=== PATIENT | male | born 1965 | race African-American/Black ===

== ENCOUNTER 2017-04-27 08:27 | Outpatient (CLI) | payer OTHER, SELFPAY ==
[2017-04-27 10:04] LABS: #Eosinphils 0.1 thou/uL (0.0-0.7); #Lymphocytes 3.5 thou/uL (1.20-3.40); #Monocytes 0.7 thou/uL (0.11-0.59); #Neutrophils 4.1 thou/uL (1.40-6.50); %Basophils 0.5 % (0.0-1.0); %Eosinophils 0.7 % (0.0-10.0); %Lymphocytes 41.8 % (21.0-51.0); %Monocytes 8.3 % (0.0-10.0); %Neutrophils 48.8 % (42.0-75.0); Mean Corpuscular HGB CONC 33.8 g/dL (32.0-36.0); Mean Corpuscular Hemoglobin 29.8 pg (27.0-31.0); Mean Corpuscular Volume 88.1 fl (80.0-94.0); Platelet Count 245 thou/uL (130-400); RBC Distribution Width 12.6 % (11.5-14.5); Red Blood Cell (RBC) Count 4.71 mill/uL (4.70-6.10); White Blood Cell (WBC) Count 8.4 thou/uL (4.8-10.8)
[2017-04-27 10:25] LABS: ALT (SGPT) 50 U/L (8-55); AST (SGOT) 19 U/L (5-34); Albumin 4.3 g/dL (3.5-5.0); Alkaline Phosphatase 65 U/L (40-150); Anion Gap 16 mmol/L (10-20); BUN (Urea Nitrogen) 30 mg/dL (8.9-20.6); Bilirubin, Total 0.4 mg/dL (0.2-1.2); Calc. Creatinine Clearance 0 mL/min (70-130); Calcium 9.8 mg/dL (7.8-10.44); Carbon Dioxide 25 mmol/L (22-29); Cardiac Risk 4.3 (Less than 4.5); Chloride 102 mmol/L (98-107); Cholesterol 160 mg/dl (< 200 Desired); Estimated GFR-MDRD 75; Globulin 2.7 g/dL (2.4-3.5); Glucose 101 mg/dL (70-105); HDL Cholesterol 37 mg/dL (>60 Neg Risk); LDL Cholesterol, Calculated 85 mg/dL; Sodium 140 mmol/L (136-145); Triglycerides 192 mg/dL (Less than 150)
[2017-04-27 17:49] LABS: CRP (Inflammatory) Less than 0.50 mg/dL (= or < 0.5)
[2017-04-29 07:21] LABS: Antinuclear AB Negative (Negative)
== END 2017-04-27 08:28 | disposition home or self-care (01) ==
LOC: HPCALD 08:27
PROVIDERS: ATTEND Family Medicine
DX: E78.2 Mixed hyperlipidemia (principal); M19.039 Primary osteoarthritis, unspecified wrist; I10 Essential (primary) hypertension
CPT/HCPCS: 36415; 80053; 80061; 84443; 85025; 85652; 86038; 86140; 86200; 86430

== ENCOUNTER 2017-05-10 16:23 | Emergency (ER) | payer OTHER ==
[2017-05-10] MEDS ORDERED: Ketorolac Tromethamine 30 MG/ML VIAL ONE (16:34)
[2017-05-10] MEDS ORDERED: methylPREDNISolone Sod Succ/PF 125 MG/2 ML VIAL ONE (16:34)
[2017-05-10 16:53] LABS: #Basophils 0.1 thou/uL (0.0-0.2); #Lymphocytes 2.1 thou/uL (1.20-3.40); #Monocytes 0.6 thou/uL (0.11-0.59); #Neutrophils 5.6 thou/uL (1.40-6.50); %Eosinophils 0.5 % (0.0-10.0); %Monocytes 7.3 % (0.0-10.0); %Neutrophils 66.2 % (42.0-75.0); Mean Corpuscular HGB CONC 34.3 g/dL (32.0-36.0); Mean Corpuscular Hemoglobin 29.7 pg (27.0-31.0); Mean Corpuscular Volume 86.6 fl (80.0-94.0); Mean Platelet Volume 7.9 fL (7.4-10.4); Platelet Count 272 thou/uL (130-400); RBC Distribution Width 11.7 % (11.5-14.5); Red Blood Cell (RBC) Count 4.71 mill/uL (4.70-6.10); White Blood Cell (WBC) Count 8.4 thou/uL (4.8-10.8)
[2017-05-10 16:58] LABS: CKMB 0.6 ng/mL (0-6.6); Troponin I 0.011 ng/mL (< 0.028)
[2017-05-10 17:22] LABS: Magnesium 2.7 mg/dL (1.6-2.6)
[2017-05-10 18:09] LABS: ALT (SGPT) 154 U/L (8-55); AST (SGOT) 86 U/L (5-34); Albumin 4.3 g/dL (3.5-5.0); Alkaline Phosphatase 147 U/L (40-150); Anion Gap 18 mmol/L (10-20); BUN (Urea Nitrogen) 29 mg/dL (8.9-20.6); Calc. Creatinine Clearance 0 mL/min (70-130); Calcium 10.7 mg/dL (7.8-10.44); Carbon Dioxide 27 mmol/L (22-29); Chloride 95 mmol/L (98-107); Estimated GFR-MDRD 71; Globulin 4.3 g/dL (2.4-3.5); Glucose 95 mg/dL (70-105); Potassium 3.6 mmol/L (3.5-5.1); Protein, Total 8.6 g/dL (6.0-8.3); Sodium 136 mmol/L (136-145)
[2017-05-11 18:12] LABS: Carbamazepine-Tegretol Less than 1.9 ug/mL (4.0-12.0)
== END 2017-05-10 18:00 | disposition home or self-care (01) ==
LOC: BURERS 16:23
DX: M10.9 Gout, unspecified (principal); I11.0 Hypertensive heart disease with heart failure; I50.9 Heart failure, unspecified; Z79.899 Other long term (current) drug therapy
CPT/HCPCS: 80053; 80156; 82553; 83735; 83880; 84484; 84550; 85025; 85652; 93005; 96361; 96374; 96375; J1885; J2930

== ENCOUNTER 2019-05-09 15:04 | Emergency (ER) | payer OTHER ==
[~2019-05-09 15:04] MED LIST: Iopamidol 370 76% 100 ML VIAL ONE
[2019-05-09 15:44] LABS: INR-International Normal Ratio 0.9; Prothrombin Time 12.1 SEC (12.0-14.7)
[2019-05-09 15:54] LABS: #Basophils 0.1 thou/uL (0.0-0.2); #Eosinphils 0.1 thou/uL (0.0-0.7); #Lymphocytes 1.6 thou/uL (1.20-3.40); #Monocytes 0.3 thou/uL (0.11-0.59); %Basophils 1.4 % (0.0-1.0); %Eosinophils 2.8 % (0.0-10.0); %Lymphocytes 38.7 % (21.0-51.0); %Monocytes 8.1 % (0.0-10.0); %Neutrophils 49.1 % (42.0-75.0); ALT (SGPT) 86 U/L (8-55); AST (SGOT) 39 U/L (5-34); Albumin 4.9 g/dL (3.5-5.0); Alkaline Phosphatase 57 U/L (40-150); Anion Gap 15 mmol/L (10-20); BUN (Urea Nitrogen) 20 mg/dL (8.4-25.7); Bilirubin, Total 0.6 mg/dL (0.2-1.2); Calc. Creatinine Clearance 0 mL/min (70-130); Calcium 10.3 mg/dL (7.8-10.44); Carbon Dioxide 27 mmol/L (22-29); Chloride 102 mmol/L (98-107); Estimated GFR-MDRD 72; Glucose 84 mg/dL (70-105); Hemoglobin 14.1 g/dL (14.0-18.0); Mean Corpuscular HGB CONC 33.1 g/dL (32.0-36.0); Mean Corpuscular Hemoglobin 29.7 pg (27.0-31.0); Mean Corpuscular Volume 89.9 fL (78.0-98.0); Mean Platelet Volume 7.5 fL (7.4-10.4); Platelet Count 188 thou/uL (130-400); Platelet Morphology Comment FEW LARGE PLATELETS; Potassium 3.4 mmol/L (3.5-5.1); Protein, Total 7.9 g/dL (6.0-8.3); RBC Distribution Width 12.6 % (11.5-14.5); Red Blood Cell (RBC) Count 4.74 mill/uL (4.70-6.10); Sodium 141 mmol/L (136-145); White Blood Cell (WBC) Count 4.1 thou/uL (4.8-10.8)
[2019-05-09 15:55] LABS: MDiff Complete? YES
[2019-05-09] MEDS ORDERED: Aspirin Chewable 81 MG TAB ONE (16:07)
--- NOTE | 2019-05-09 16:27 | CT ---
CT ANGIOGRAM NECK WITH AND WITHOUT CONTRAST CT ANGIOGRAM BRAIN WITH CONTRAST: DATE: 05/09/2019 3:40 PM HISTORY: 54-year-old male with acute onset dizziness and ataxia Dr. Sánchez verbally gave this acute stroke alert protocol report by telephone to Dr. Horton of the [facility] emergency department at approximately 4:15 PM on 05/09/2019 TECHNIQUE: First, standard noncontrast brain CT performed. After IV contrast injection, arterial bolus chasing technique scan performed from top of aortic arch to vertex of head. Coronal and sagittal 3-D MIP reconstructions. FINDINGS: Because of severe motion artifact, either swallowing or verbalization, during scanning of the level o f the proximal internal carotid arteries, the bilateral proximal internal carotid arteries cannot be evaluated for degree of stenosis. There is a focal calcified plaque in the right proximal internal carotid artery. The mid and distal cervical portions of the internal carotid arteries, bilateral vertebral arteries, bilateral common carotid arteries, brachiocephalic artery, and right subclavian a rtery, are normal in caliber. Left vertebral artery is dominant. No short segment high-grade focal acquired stenosis involving bilateral carotid siphons, M1 segments of bilateral MCAs, A1 segment of r ight ELISA, A2 segments of bilateral ACAs, intracranial vertebral, basilar, P1 segment of right LUNCH WAGON OPERATOR, and P2 segments of bilateral pigskin trimmer. Patent anterior communicating artery and bilateral posterior commu nicating arteries. origin of left LUNCH WAGON OPERATOR. The proximal portions of the bilateral AICAs half contrast material, but the rest of those vessels are difficult to visualize because of their small si ze. Bilateral PICA s are visualized. A1 segment of the left ELISA is developmentally absent. The bilateral frontal sinuses have no osseous septation between them, and are completely opacified wi th soft tissue density material, interspersed with numerous tiny calcific or ossific fragments. The rest of the paranasal sinuses are grossly clear. There is a broad, approximately 7 x 5 x 1 cm left frontal dural ossification. No obstructive hydrocephalus, edema, mass effect, midline shift, or extra-axial fluid collection. No acute intra-axial or acute extra-axial hemorrhage. IMPRESSION: 1) cannot evaluate bilateral proximal internal carotid arteries because of severe patient motion at t hose levels. 2) no evidence of M1 segment middle cerebral artery occlusion or thrombosis. 3) no occlusion of proximal portions of arteries of posterior circulation. 4) totally opacified frontal sinuses filled with soft tissue density material status post with large number of tiny calcifications. Mucocele versus postsurgical changes versus combination of both. 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 6) no acute intracranial findings.
== END 2019-05-09 16:45 | disposition short-term general hospital (02) ==
LOC: BURERS 15:04
DX: R27.0 Ataxia, unspecified (principal); R53.1 Weakness; M19.90 Unspecified osteoarthritis, unspecified site; I11.0 Hypertensive heart disease with heart failure; I50.9 Heart failure, unspecified; Z79.899 Other long term (current) drug therapy; Z79.82 Long term (current) use of aspirin
CPT/HCPCS: 36416; 70496; 80053; 84484; 85025; 85610; 93005; Q9967

== ENCOUNTER 2019-11-15 14:28 | Outpatient (CLI) | payer OTHER ==
--- NOTE | 2019-11-15 14:46 | RAD ---
EXAM: Chest PA and lateral: HISTORY: Atypical chest pain COMPARISON: 05/11/2019 FINDINGS: Heart: Normal cardiac silhouette Aorta: Unremarkable Pulmonary vessels: Normal Costophrenic angles: Costophrenic angles are clear. Lungs: Partial obscuration of the descending thoracic aorta and medial left hemidiaphragm. Left lower lobe infiltrate. Pneumothorax: No pneumothorax Osseous structures: No osseous abnormalities IMPRESSION: Left lower lobe infiltrate.
== END 2019-11-15 14:29 | disposition home or self-care (01) ==
LOC: BURRAD 14:28
PROVIDERS: ATTEND Family Medicine
DX: R07.89 Other chest pain (principal); R91.8 Other nonspecific abnormal finding of lung field
CPT/HCPCS: 71046

== ENCOUNTER 2020-08-04 08:58 | Emergency (ER) | payer BC, OTHER ==
[2020-08-04] MEDS ORDERED: Aspirin Chewable 81 MG TAB ONE (09:22)
[2020-08-04] MEDS ORDERED: Nitroglycerin 0.4 MG TAB 1 EACH ONE (09:22)
[2020-08-04 09:39] LABS: #Eosinphils 0.1 thou/uL (0.0-0.7); #Lymphocytes 1.7 thou/uL (1.20-3.40); #Monocytes 0.3 thou/uL (0.11-0.59); #Neutrophils 1.8 thou/uL (1.40-6.50); %Basophils 0.5 % (0.0-1.0); %Eosinophils 2.6 % (0.0-10.0); %Lymphocytes 42.5 % (21.0-51.0); %Monocytes 8.5 % (0.0-10.0); Hemoglobin 15.4 g/dL (14.0-18.0); Mean Corpuscular HGB CONC 33.1 g/dL (32.0-36.0); Mean Corpuscular Hemoglobin 29.6 pg (27.0-31.0); Mean Corpuscular Volume 89.5 fL (78.0-98.0); Mean Platelet Volume 8.4 fL (7.4-10.4); Platelet Count 161 thou/uL (130-400); RBC Distribution Width 12.7 % (11.5-14.5); Red Blood Cell (RBC) Count 5.18 mill/uL (4.70-6.10)
[2020-08-04 09:56] LABS: ALT (SGPT) 74 U/L (8-55); AST (SGOT) 30 U/L (5-34); Albumin 4.7 g/dL (3.5-5.0); Alkaline Phosphatase 72 U/L (40-110); Anion Gap 17 mmol/L (10-20); BUN (Urea Nitrogen) 20 mg/dL (8.4-25.7); Bilirubin, Total 0.4 mg/dL (0.2-1.2); Calc. Creatinine Clearance 0 mL/min (70-130); Calcium 9.8 mg/dL (7.8-10.44); Carbon Dioxide 24 mmol/L (22-29); Chloride 100 mmol/L (98-107); Estimated GFR-MDRD 68; Globulin 3.1 g/dL (2.4-3.5); Glucose 141 mg/dL (70-105); Potassium 3.3 mmol/L (3.5-5.1); Protein, Total 7.8 g/dL (6.0-8.3); Sodium 138 mmol/L (136-145)
[2020-08-04 13:05] LABS: Troponin I 0.012 ng/mL (< 0.028)
--- NOTE | 2020-08-04 14:54 | RAD ---
PORTABLE CHEST: DATE: 08/04/2020. FINDINGS: An AP portable film at 0927 is compared with a 11/15/2019 study. The heart seems slightly larger today than before. There is no clear congestion or edema. No effusi ons are seen. The lungs are currently clear. IMPRESSION: Mild cardiomegaly. POS: HOME
== END 2020-08-04 15:09 | disposition short-term general hospital (02) ==
LOC: BURERS 08:58
DX: R07.9 Chest pain, unspecified (principal); I11.0 Hypertensive heart disease with heart failure; I50.9 Heart failure, unspecified; E78.00 Pure hypercholesterolemia, unspecified; M06.9 Rheumatoid arthritis, unspecified; Z79.82 Long term (current) use of aspirin; Z79.899 Other long term (current) drug therapy
CPT/HCPCS: 36415; 71045; 80053; 83880; 84484; 85025; 93005

== ENCOUNTER 2022-08-10 09:45 | Outpatient (CLI) | payer BC, OTHER | END 2022-08-10 09:46 | disposition home or self-care (01) | LOC: BURRAD 09:45 | PROVIDERS: ATTEND Family Medicine | DX: M25.50 Pain in unspecified joint (principal); M19.011 Primary osteoarthritis, right shoulder ==

== ENCOUNTER 2023-04-17 17:55 | Emergency (ER) | payer BC, OTHER ==
[2023-04-17 18:33] LABS: #Eosinphils 0.1 thou/uL (0.0-0.7); #Lymphocytes 1.7 thou/uL (1.20-3.40); #Monocytes 0.4 thou/uL (0.11-0.59); #Neutrophils 1.8 thou/uL (1.40-6.50); %Basophils 0.6 % (0.0-1.0); %Eosinophils 2.1 % (0.0-10.0); %Lymphocytes 43.2 % (21.0-51.0); %Monocytes 8.8 % (0.0-10.0); %Neutrophils 45.2 % (42.0-75.0); Hematocrit 36.6 % (42.0-52.0); Hemoglobin 12.4 g/dL (14.0-18.0); Mean Corpuscular HGB CONC 33.9 g/dL (32.0-36.0); Mean Corpuscular Volume 88.4 fl (78.0-98.0); Mean Platelet Volume 6.8 fL (7.4-10.4); Platelet Count 190 10x3/uL (130-400); RBC Distribution Width 12.2 % (11.5-14.5); Red Blood Cell (RBC) Count 4.14 mill/uL (4.70-6.10)
[2023-04-17 18:40] LABS: Bilirubin Negative (Negative); Blood, Urine Trace (Negative); Clarity Clear (Clear); Glucose, Urine (Dipstick) Negative (Negative); Ketone, Urine Negative (Negative); Leukocyte Negative (Negative); Nitrite Negative (Negative); Protein, Urine (Dipstick) Negative (Neg-Trace); Specific Gravity, Urine 1.025 (1.005-1.030)
[2023-04-17 18:49] LABS: ALT (SGPT) 28 U/L (8-55); AST (SGOT) 20 U/L (5-34); Albumin 4.4 g/dL (3.5-5.0); Alkaline Phosphatase 65 U/L (40-110); Anion Gap 12 mmol/L (10-20); BUN (Urea Nitrogen) 20 mg/dL (8.4-25.7); Bilirubin, Total 0.3 mg/dL (0.2-1.2); Calc. Creatinine Clearance 0 mL/min (70-130); Calcium 9.7 mg/dL (7.8-10.44); Carbon Dioxide 25 mmol/L (22-29); Chloride 106 mmol/L (98-107); Estimated GFR 63; Globulin 2.8 g/dL (2.4-3.5); Glucose 84 mg/dL (70-105); Protein, Total 7.2 g/dL (6.0-8.3); Sodium 139 mmol/L (136-145)
[2023-04-17 18:50] LABS: Bacteria/HPF Rare-Few HPF (None Seen); CAUTI Indications for Culture Dysuria,urgency,freq; RBC/HPF 0-3 HPF (0-3); Squamous Epithelial 0-3 HPF (0-3); Urine Culture Reflex No No; WBC/HPF 0-3 HPF (0-3)
[2023-04-17 18:51] LABS: Troponin I Less than 0.010 ng/mL (< 0.028)
[2023-04-17] MEDS ORDERED: Nitroglycerin 0.4 MG TAB 1 EACH ONE (20:03)
[2023-04-17] MEDS ORDERED: Nitroglycerin 2% Ointment 1 INCH/1 GM Packet ONE (20:11)
== END 2023-04-17 20:15 | disposition short-term general hospital (02) ==
LOC: BURERS 17:55
DX: R53.1 Weakness (principal); R00.1 Bradycardia, unspecified; Z79.82 Long term (current) use of aspirin; Z79.899 Other long term (current) drug therapy
CPT/HCPCS: 71045; 80053; 81001; 83880; 84484; 85025; 93005

== ENCOUNTER 2024-03-06 08:30 | Emergency (ER) | payer BC ==
[2024-03-06 08:57] LABS: #Eosinphils 0.1 thou/uL (0.0-0.7); #Lymphocytes 1.6 thou/uL (1.20-3.40); #Monocytes 0.3 thou/uL (0.11-0.59); #Neutrophils 1.7 thou/uL (1.40-6.50); %Basophils 1.3 % (0.0-1.0); %Eosinophils 2.1 % (0.0-10.0); %Lymphocytes 42.8 % (21.0-51.0); %Monocytes 8.4 % (0.0-10.0); %Neutrophils 45.4 % (42.0-75.0); Hematocrit 45.7 % (42.0-52.0); Hemoglobin 15.3 g/dL (14.0-18.0); Mean Corpuscular HGB CONC 33.4 g/dL (32.0-36.0); Mean Corpuscular Hemoglobin 28.4 pg (27.0-31.0); Mean Corpuscular Volume 85.1 fl (78.0-98.0); Mean Platelet Volume 7.7 fL (7.4-10.4); Platelet Count 180 10x3/uL (130-400); RBC Distribution Width 11.8 % (11.5-14.5); Red Blood Cell (RBC) Count 5.37 mill/uL (4.70-6.10); White Blood Cell (WBC) Count 3.7 10x3/uL (4.8-10.8)
[2024-03-06 09:06] LABS: Bilirubin Small (Negative); Blood, Urine Negative (Negative); Clarity Clear (Clear); Glucose, Urine (Dipstick) Negative (Negative); Ketone, Urine Trace mg/dL (Negative); Leukocyte Negative (Negative); Nitrite Negative (Negative); Protein, Urine (Dipstick) 30 mg/dL (Neg-Trace); Specific Gravity, Urine 1.025 (1.005-1.030); Urobilinogen 0.2 mg/dL (Less than 2)
[2024-03-06 09:10] LABS: Troponin I 0.021 ng/mL (< 0.028)
[2024-03-06 09:13] LABS: Acetaminophen Less than 10 mcg/mL (10.0-30.0); Alcohol Less than 10.0 mg/dL (Less than 10); Lipase 39 U/L (8-78); Salicylate Less than 8.0 mg/dL (15.0-30.0)
[2024-03-06 09:13] LABS: Bacteria/HPF None Seen HPF (None Seen); CAUTI Indications for Culture Dysuria,urgency,freq; Mucous/LPF 1+ LPF (<2+); RBC/HPF 0-3 HPF (0-3); WBC/HPF 0-3 HPF (0-3)
[2024-03-06 09:15] LABS: Urine Culture Reflex No No
[2024-03-06 09:18] LABS: Amphetamine Not Detected (NotDetected); Barbiturates Screen Not Detected (NotDetected); Benzodiazepine Screen Not Detected (NotDetected); Cocaine Metabolite Screen Not Detected (NotDetected); Methadone Not Detected (NotDetected); Methamphetamine Not Detected (NotDetected); Opiate Screen Not Detected (NotDetected); Oxycodone Screen Not Detected (NotDetected); Phencyclidine (PCP) Not Detected (NotDetected); THC/Cannabinoid Screen Not Detected (NotDetected); Tricyclic Screen Not Detected (NotDetected)
[2024-03-06] MEDS ORDERED: Aspirin Chewable 81 MG TAB ONE (09:19)
[2024-03-06 09:20] LABS: ALT (SGPT) 39 U/L (8-55); AST (SGOT) 22 U/L (5-34); Albumin 4.5 g/dL (3.5-5.0); Alkaline Phosphatase 59 U/L (40-110); Anion Gap 16 mmol/L (10-20); BUN (Urea Nitrogen) 20 mg/dL (8.4-25.7); Bilirubin, Total 0.5 mg/dL (0.2-1.2); CK (CPK) 338 U/L (30-200); Calc. Creatinine Clearance 0 mL/min (70-130); Calcium 9.7 mg/dL (7.8-10.44); Carbon Dioxide 22 mmol/L (22-29); Chloride 107 mmol/L (98-107); Estimated GFR 44; Globulin 2.5 g/dL (2.4-3.5); Glucose 130 mg/dL (70-105); Potassium 3.4 mmol/L (3.5-5.1); Sodium 142 mmol/L (136-145)
== END 2024-03-06 10:46 | disposition short-term general hospital (02) ==
LOC: BURERS 08:30
DX: R07.2 Precordial pain (principal); R06.00 Dyspnea, unspecified; R00.1 Bradycardia, unspecified; E78.00 Pure hypercholesterolemia, unspecified; I11.0 Hypertensive heart disease with heart failure; I50.9 Heart failure, unspecified; Z79.82 Long term (current) use of aspirin; Z79.899 Other long term (current) drug therapy
CPT/HCPCS: 36415; 71045; 80053; 80306; 80307; 81001; 82550; 83690; 83880; 84443; 84484; 85025; 85379; 93005; 94760